=== PATIENT | female | born 1990 | race Caucasian/White ===

== ENCOUNTER 2018-09-11 12:08 | Observation (INO) ==
[2018-09-11] MEDS ORDERED: ONDANSETRON 4 MG/2 ML VIAL IVP ONE ×2 (12:36→15:28)
[2018-09-11] MEDS ORDERED: Sodium Chloride 0.9% 1,000 ML PRIMARY IV ONE (12:36)
[2018-09-11] MEDS ORDERED: MORPHINE SULFATE 4 MG/1 ML IVP ONE ×2 (12:36→14:53)
[2018-09-11 13:14] LABS: BASOPHILS # (AUTO) 0.02 10*3/UL; BASOPHILS % (AUTO) 0.2 % (0-1); EOSINOPHILS # (AUTO) 0.05 10*3/UL; EOSINOPHILS % (AUTO) 0.6 % (0-8); Hematocrit [HCT] 39.6 % (37.0-47.0); Hemoglobin [HGB] 13.5 g/dL (12.0-16.0); LYMPHOCYTES # (AUTO) 2.93 10*3/uL; MEAN CORPUSCULAR HGB CONC 34.1 g/dL (33-37); MEAN PLATELET VOLUME 10.4 FL (7.4-12.2); MONOCYTES # (AUTO) 0.52 10*3/UL (0.3-0.8); MONOCYTES % (AUTO) 6.1 % (5-15); NEUTROPHILS # (AUTO) 5.03 10*3/UL; NEUTROPHILS % (AUTO) 58.8 % (50-80); RED BLOOD COUNT 4.35 10^6/uL (4.20-5.40)
[2018-09-11 13:21] LABS: PLATELET MORPHOLOGY COMMENT NORMAL MORPHOLOGY (NORM); RBC MORPHOLOGY COMMENT NORMAL MORPHOLOGY (NORM); WBC MORPHOLOGY COMMENT NORMAL MORPHOLOGY (NORM)
[2018-09-11 13:22] LABS: BILIRUBIN,URINE NEGATIVE (NEG); CLARITY,URINE CLEAR (CLEAR); COLOR,URINE YELLOW (Y); GLUCOSE, URINE (UA) NEGATIVE (NEG); OCCULT BLOOD,URINE MODERATE (NEG); PH,URINE 7.5 (5.0-8.5); PROTEIN,URINE NEGATIVE (NEG); UROBILINOGEN,URINE 0.2 EU/dL (0.2)
[2018-09-11 13:25] LABS: BLOOD UREA NITROGEN 7 mg/dL (7-22); BUN/CREATININE RATIO 11.66 (6-20); LIPASE 82 IU/L (23-300); SERUM ALBUMIN 4.4 g/dL (3.5-4.8)
[2018-09-11 13:28] LABS: RBC,URINE RARE /hpf; URINE SAMPLE TYPE VOIDED SPECIMEN; WBC,URINE 0
[2018-09-11 13:29] LABS: SQUAMOUS EPITHELIAL CELL,UR RARE
--- NOTE | 2018-09-11 14:49 | DI ---
US Abdomen Complete 09/11/2018 12:37 PM History: [facility] DI ^Abdominal Pain Comparison: Abdominal ultrasound 09/05/2018. Procedure: Gonzalez scale and color doppler bilateral upper quadrant ultrasound was performed. Findings: The liver is normal in size, echogenicity, and echotexture. There are no focal lesions vis ualized. The gallbladder is normal, without evidence of stones or pericholecystic fluid. There is a n ormal gallbladder wall measuring 2 mm. No sonographic Roblero's sign was present. The common duct shantal ures 4 mm. There is no intrahepatic biliary ductal dilatation. There is no free fluid seen within the hepatorenal space. Imaged portions of the pancreas are grossly unremarkable. The spleen demonstrates normal size and mor phology and measures 10.6 x 4.2 x 3.6 cm. There is a 1.3 cm splenule adjacent to the spleen. The right kidney measures 11.8 cm in length and the left kidney measures 11.0 cm. No hydronephrosis, calculi, or masses are appreciated. The imaged portions of the abdominal aorta demonstrate normal caliber with distal tapering. The image d portions of the IVC demonstrate normal course and caliber. Impression: Normal upper abdominal ultrasound.
--- NOTE | 2018-09-11 15:20 | DI ---
US OB Transvaginal 09/11/2018 12:37 PM History: [facility] [place] DI ^[id number] ^Abdominal Pain Comparison: Pelvic ultrasound 03/13/2015. Findings: Routine transabdominal and endovaginal early obstetric ultrasound demonstrates no evidence of intrauterine . There is no detectable gestational sac or pole within the endometria l cavity. Both ovaries were visualized. The right ovary measures 3.6 x 2.7 x 2.4 cm (12 mL) with normal morphol ogy and vascular flow. The left ovary measures 2.1 x 1.3 x 1.0 cm. (1 mL) with normal morphology and vascular flow. There is a heterogeneously echogenic mass immediately adjacent to the posterior aspect of the right ovary. The mass measures 2.5 x 1.7 x 2.4 cm. The mass is partially obscured by adjacent shadowing bowel gas and the overlying right ovary. There is vascular flow within and surrounding the mass. There is no discrete gestational sac or pole within the mass, however. Minimal free cul- de-sac fluid was present. Impression: 1. There is a heterogeneously echogenic mass immediately adjacent to the slightly enlarged, though ot herwise normal right ovary. There is vascular flow within and surrounding the mass. There is no discr ete gestational sac or pole within the mass, however. Differential considerations for this mass include early ectopic , ovarian tissue, versus bowel loop. Given the mild enlargement of th e right ovary, differential considerations should also include ovarian torsion-detorsion. As early in trauterine and ectopic cannot be excluded, close clinical/laboratory followup is recommende d with low threshold for repeat imaging. 2. Normal sonographic morphology of the left ovary.
[2018-09-11] MEDS ORDERED: HYDROmorphone 2 MG/1 ML IVP ONE (15:26)
--- NOTE | 2018-09-11 16:24 | CONSULT ---
Consult Note - Consult Consult Date: 09/11/18 Reason for Consult: right lower quadrant pain, Requesting Physician: Dr. Marie Primary Care Provider: Ernestine Olson MD - History of Present Illness History of Present Illness: The patient is a 28-year-old LMP 08/07/2018 using nothing for contraception who started having pain about 1 week ago. Patient was seen in the emergency room for abdominal pain and right lower quadrant pain 09/05/2018. Quantitative hCG at that time was 19. The patient was sent home with precautions. The patient has had intermittent discomfort and pain. The patient went to work today in [place], [place] and started having increasing right lower quadrant pain and then had vaginal bleeding. The patient then went to the emergency room here after driving home to [place], [place] and then coming here to [facility] from [place], [place]. No fever or chills. Positive flatus. The patient is hungry. The patient states that her pain started a week ago on her right lower quadrant and has mainly been in the right lower quadrant but also throughout her abdomen and also wrapping around to her lower back on the right side. Patient does have a history of some low back pain problems. In the emergency room, the patient received 2 doses of morphine and for continued right lower quadrant pain the patient then received IV Dilaudid. This is right before I saw the patient. 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 Past medical history-no hypertension, no diabetes, no asthma Past surgical history noncontributory Allergies-Compazine and fentanyl No tobacco. Patient quit 4 months ago. Occasional alcohol. No drugs. Menarche around age 12 or 13. No STI history. No abnormal Pap smear history. The patient's GC and chlamydia today was negative by a urine PCR test. Past Medical History Tobacco Use: Current Every Day Smoker In the Past 12 Months, Have Used or Abuse Any of the Following Substance: Marijuana, Other (please comment) Medication / Allergies Home Medications: Home Medications Medication Instructions Recorded Confirmed Type NK 09/05/18 09/11/18 History Allergies/Adverse Reactions: Allergies Allergy/AdvReac Type Severity Reaction Status Date / Time fentanyl Allergy Intermediate Nausea and Verified 09/11/18 15:25 Vomiting hydromorphone HCl Allergy SHORTNESS Verified 09/11/18 12:11 [From Dilaudid] OF BREATH prochlorperazine edisylate Allergy NOT Verified 09/11/18 12:11 [From Compazine] APPLICABLE prochlorperazine maleate Allergy NOT Verified 09/05/18 21:50 [From Compazine] APPLICABLE Exam - Vitals Vital Signs: Vital Signs Temperature 97.6 F Temperature Source Temporal Artery Scan Pulse Rate [Pulse Oximeter] 84 Respiratory Rate 16 Blood Pressure [Left Arm] 114/82 Pulse Ox 98 Oxygen Delivery Method Room Air Height 5 ft 5 in Weight 135 lb - General General Appearance: Cooperative, Mild Distress - Respiratory Respiratory Exam: POSITIVE: Clear to Auscultation - Bilaterally - GI/Abdominal GI/Abdominal Exam: POSITIVE: Normal Bowel Sounds, Soft, Guarding (In the right lower quadrant but otherwise no guarding or rebound in the other parts of the abdomen.). NEGATIVE: Mass - Exam: POSITIVE: Speculum Exam Normal, Vaginal Bleeding (Dark blood in the vaginal vault. No tissue visualized.), Adnexal Tender (R). NEGATIVE: Adnexal Tender (L) - Psychiatric Psychiatric Exam: POSITIVE: Normal Affect, Normal Mood Results - Labs CBC and BMP: 09/11/18 13:00 09/11/18 13:00 Assessment and Plan - Assessment / Plan Additional Assessment/Plan Details: Assessment: The patient is a 28-year-old LMP 08/07/2018 at 5 weeks gestation by LMP. Quantitative hCG 195. 6 days ago her quantitative hCG was 19. Her quantitative hCG has doubled appropriately. The patient has had right lower quadrant pain for about a week and this right lower quadrant pain worsened today and then she had vaginal bleeding. The patient has required 3 doses of IV narcotics in the emergency room secondary to her right lower quadrant pain. The patient does have a 2-2-1/2 cm mass on the right side that may be contiguous with the right ovary or may be behind the right ovary such as in the fallopian tube. The patient does have normal bowel sounds. The patient is passing flatus. The patient's white count is normal. The patient is hungry and does not have anorexia. The patient may have a threatened AB and spontaneous AB occurring. She may have a right ectopic . It would be unusual that the patient has had pain for a week that didn't increase today when 6 days ago her quantitative hCG was only 19. However, ectopic pregnancies can present in a patient who is in her early stages of . The patient's ovary is also slightly enlarged although there are no masses and the radiologist did discuss the possibility of intermittent torsion. The patient may have an early appendicitis but she does have a normal white count. The patient is Rh-. The patient's antibody screen is negative. Plan: I discussed with the patient the differential diagnosis of a threatened AB and a possible spontaneous AB occurring versus a right ectopic . I explained that an ectopic may occur in the fallopian tube and that is the most common place but ectopic pregnancies are pregnancies that occur outside of the uterus. I also discussed that this could be intermittent torsion. I discussed a diagnostic laparoscopy and possibly operative laparoscopy with a right salpingectomy. I discussed the risks, benefits, alternatives and indication of infection, bleeding, pain, damage to bowel, bladder, nerve, vessel, blood clots to the legs or lungs, the risk of not being able to diagnose exactly what is going on if a normal fallopian tube and normal ovary are visualized on the right side. I also discussed that I would try to visualize the appendix. Risk of anesthesia, and low risk of were discussed with the patient. The patient expressed understanding. The patient is contemplating what she would like to do. The patient does need RhoGAM. This will be administered. The patient and I discussed surgery versus observation. Initially the patient wanted to be observed overnight in the hospital but then she started having increased right lower quadrant pain after the third dose of IV narcotics- Dilaudid started to resolve its effects. The patient then decided that she wanted surgery secondary to her pain. The patient stated that she understood the risks. Consent forms were signed. Patient was transferred to the PACU.
[2018-09-11] MEDS ORDERED: RHO(D) IMMUNE GLOBULIN 1500 UNIT(300 mcg)SYRIN IM ONE (16:32)
--- NOTE | 2018-09-11 17:38 | PDOC ---
Abdomen/Flank HPI - General Chief Complaint: General Medical Stated Complaint: PELVIC/ABD/BACK PAIN Date Seen by Provider: 09/11/18 Time Seen by Provider: 12:25 Source: POSITIVE: Patient, Old records, Other (Mother) Exam Limitations: POSITIVE: No limitations Nurse's Notes Reviewed & Considered: Yes - History of Present Illness Initial Comments: The patient is a 28-year-old female. She states her last menstrual period was 07 August and she's had a positive test, once at home and once in the emergency room on 05 September. Patient states that around 8 AM she developed pain on the right side of her abdomen, especially in the left lower abdomen. Patient was seen in the emergency room on September 05 with some intermittent abdominal pain, right greater than left. She had a normal abdominal and transvaginal pelvic ultrasound at that time. Patient states that after going home after this first visit she has had a few episodes of mild intermittent pain, and then the pain became worse around 4-1/2 hours CEMENT MASON. Upon presentation to the emergency room the patient denied any vaginal discharge or bleeding, but while in the emergency room she did develop some vaginal bleeding. Patient is 4 para 1 aborta 2. No history of STDs. She states she has a history of "ovarian cysts "in the past. She's had some nausea but no vomiting. No melena, hematochezia, hematemesis, dysuria or hematuria. Body Location Affected: REPORTS: Abdomen Timing: REPORTS: Abrupt Duration: 4-6 hours (4-1/2 hours CEMENT MASON) Severity: Moderate Quality: REPORTS: "Pain" Abdominal Pain Onset Location: REPORTS: RLQ, Periumbilical Abdominal Pain Radiation: REPORTS: No radiation Context: REPORTS: None Modifying Factors: improves with: Nothing Associated Symptoms: REPORTS: Nausea Similar Symptoms Previously: Yes (seen in the ER 05 September with abdominal discomfort; see above) Recent Care Received: REPORTS: Recently Seen, Treated by MD Any Prior Injuries Related to Current Complaint?: No - Patient Home Medications Home Medications: Home Medications NK 09/05/18 - Patient Allergies Allergies/Adverse Reactions: Allergies Allergy/AdvReac Type Severity Reaction Status Date / Time fentanyl Allergy Intermediate Nausea and Verified 09/11/18 15:25 Vomiting hydromorphone HCl Allergy SHORTNESS Verified 09/11/18 12:11 [From Dilaudid] OF BREATH prochlorperazine edisylate Allergy NOT Verified 09/11/18 12:11 [From Compazine] APPLICABLE prochlorperazine maleate Allergy NOT Verified 09/05/18 21:50 [From Compazine] APPLICABLE Past Medical History - heen HEENT History: Denies History Cardiovascular History: Other (please comment) Additional Cardiovasular History: ANEMIA Respiratory History: Denies History Gastrointestinal History: Denies History Genitourinary History: Denies History Endocrine History: Denies History Musculoskeletal History: Denies History Neurological History: Denies History Blood Disorders: Anemia Psychiatric History: Denies History History of Sexually Transmitted Diseases: No Female Reproductive History: Ovarian Cyst Additional Obstetrical History: currently , approx. 3 weeks per patient Cancer History: Denies History In Past Year Been Physically Harmed or Verbally Threatened: No History of MDRO: No History of Other Communicable Diseases: No Tobacco Use: Current Every Day Smoker Alcohol Use: None In the Past 12 Months, Have Used or Abuse Any Substance: Marijuana, Other (please comment) Previous Surgical History: No Significant Family History: Cancer, Diabetes, Seizures Past Medical History Reviewed: Reviewed - No Changes ROS - Limitations ROS Limitations: No Limitations Constitution: REPORTS: Denies Symptoms Cardiovascular: REPORTS: Denies Cardiac Symptoms Respiratory: REPORTS: Denies Resp Symptoms Neurological: REPORTS: Denies Neuro Symptoms Gastrointestinal: REPORTS: Abdominal Pain, Nausea Endocrine: REPORTS: Denies Symptoms Musculoskeletal: REPORTS: Denies MS Symptoms Genitourinary: REPORTS: Denies Symptoms Eyes: REPORTS: Denies Symptoms ENT: REPORTS: Denies Symptoms Skin: REPORTS: Denies Skin Symptoms Lympathic: REPORTS: Denies Lympathic Symptoms Immunologic: POSITIVE: Denies Symptoms Psychiatric: POSITIVE: Denies Psych Symptoms Abdominal/Flank Pain PE - General Appearance General Appearance: POSITIVE: Alert, Cooperative, No Evidence of Trauma, Moderate Distress (Due to abdominal pain). NEGATIVE: No Acute Distress - HEENT HEENT: POSITIVE: Head Inspection Nml, Eyes Inspection Nml, Ears Inspection Nml, Nose Inspection Nml, Oral/Dental Inspect. Nml, Pharynx Inspect. Nml, PERRL, EOMI - Neck Neck: POSITIVE: Normal Inspection, No Apparent Injury - Respiratory Respiratory: POSITIVE: No Respiratory Distress, Breath Sounds Normal, Chest Non- Tender - Cardiovascular Cardiovascular: POSITIVE: Regular Rate and Rhythm, Heart Sounds Normal, Equal Pulses, Strong Pulses Peripheral Pulses: Radial (R): 2+, Radial (L): 2+ - Chest Chest: POSITIVE: Non Tender - Abdomen Abdomen: Soft: (All Quadrants), Normal Bowel Sounds: (All Quadrants), Denies Tenderness: (LUQ), (LLQ), (RUQ), No Splenomegaly: (All Quadrants), No Hepatomegaly: (All Quadrants), No Guarding: (All Quadrants), No Rebound: (All Quadrants), No Palpable Pulse: (All Quadrants), No Palpabale Mass: (All Quadrants), No Distention: (All Quadrants), No Rigidity: (All Quadrants), Tenderness Noted: (RLQ) Additional Abdominal Details: Abdominal examination shows bowel sounds to be present. Patient complains of pain on palpation over the right lower quadrant and right paraumbilical area, with no masses, organomegaly or rebound. - Genital / Rectal Pelvic: POSITIVE: External Exam Normal, Vaginal Bleeding, Cervical Motion Tender, Adnexal Tenderness (R). NEGATIVE: Speculum Exam Normal (Some blood in the vault; cervical os closed), Bimanual Exam Normal (Tender on palpation right adnexa), Vaginal Discharge, Adnexal Tenderness (L), Adnexal Mass (R), Adnexal Mass (L), Enlarged Uterus, Tender Uterus, Perineal Hematoma - Back Back: POSITIVE: Normal Inspection. NEGATIVE: CVA Tenderness (R), CVA Tenderness (L) - Skin Skin: POSITIVE: Intact, Normal For Race, Warm, Dry, No Rash - Extremities Extremity: Non-Tender: (All Extremities), Normal ROM: (All Extremities), Normal Inspection: (All Extremities) - Neurological Neurological: POSITIVE: Affect Apporpriate, Oriented X3, diagnostic sales specialist Normal As Tested, Motor Normal, Sensation Normal - Psychological Psychiatric: POSITIVE: Affect Appropriate, Mood Appropriate Images - Complete Complete: 1 - Pain on palpation Abdomen Progress - Results Reviewed by me Xrays/CTs/US Reviewed by me: Yes Discussed with Radiologist: Yes Radiology Findings: Pelvic ultrasound shows a right adnexal mass. No intrauterine contents noted. Lab Results Reviewed by Me: Yes (blood type is A-) CBC and BMP: 09/11/18 13:00 09/11/18 13:00 Lab Results:: Laboratory Results 09/11/18 09/11/18 09/11/18 13:00 13:00 13:00 WBC 8.56 RBC 4.35 Hgb 13.5 Hct 39.6 MCV 91.0 MCH 31.0 MCHC 34.1 RDW Std Deviation 44.1 RDW Coeff of Daniel 13.5 Plt Count 274 MPV 10.4 Immature Gran % (Auto) 0.1 Neut % (Auto) 58.8 Lymph % (Auto) 34.2 Shoshone % (Auto) 6.1 Eos % (Auto) 0.6 Baso % (Auto) 0.2 Immature Gran # (Auto) 0.01 Neut # (Auto) 5.03 Lymph # (Auto) 2.93 Shoshone # (Auto) 0.52 Eos # (Auto) 0.05 Baso # (Auto) 0.02 WBC Morphology Comment Normal morphology Plt Morphology Comment Normal morphology RBC Morph Comment Normal morphology Sodium 137 Potassium 3.7 L Chloride 104 Carbon Dioxide 24 Anion Gap 9 BUN 7 Creatinine 0.6 Estimated GFR > 60 BUN/Creatinine Ratio 11.66 Glucose 82 Calculated Osmolality 280.0 Calcium 9.1 Total Bilirubin 0.4 D AST 28 ALT 27 Alkaline Phosphatase 94 C-Reactive Protein < 0.5 Total Protein 7.5 Albumin 4.4 Globulin 3.1 Albumin/Globulin Ratio 1.40 Amylase 53 Lipase 82 HCG, Quant Ur Collection Type Voided specimen Urine Color Yellow Urine Clarity Clear Urine pH 7.5 Ur Specific [place] 1.010 Urine Protein Negative Urine Glucose (UA) Negative Urine Ketones Negative Urine Occult Blood Moderate H Urine Nitrate Negative Urine Bilirubin Negative Urine Urobilinogen 0.2 Ur Leukocyte Esterase Negative Urine RBC Rare Urine WBC 0 Ur Squamous Epith Cells Rare Ur Renal Epithelial Cell None Urine Crystals None Urine Bacteria None Urine Casts None Urine Mucus None Urine Trichomonas None Urine Yeast None Ur Culture Indicated? Culture not set Blood Type Antibody Screen 09/11/18 09/11/18 13:00 14:32 WBC RBC Hgb Hct MCV MCH MCHC RDW Std Deviation RDW Coeff of Daniel Plt Count MPV Immature Gran % (Auto) Neut % (Auto) Lymph % (Auto) Shoshone % (Auto) Eos % (Auto) Baso % (Auto) Immature Gran # (Auto) Neut # (Auto) Lymph # (Auto) Shoshone # (Auto) Eos # (Auto) Baso # (Auto) WBC Morphology Comment Plt Morphology Comment RBC Morph Comment Sodium Potassium Chloride Carbon Dioxide Anion Gap BUN Creatinine Estimated GFR BUN/Creatinine Ratio Glucose Calculated Osmolality Calcium Total Bilirubin AST ALT Alkaline Phosphatase C-Reactive Protein Total Protein Albumin Globulin Albumin/Globulin Ratio Amylase Lipase HCG, Quant 195.13 Ur Collection Type Urine Color Urine Clarity Urine pH Ur Specific [place] Urine Protein Urine Glucose (UA) Urine Ketones Urine Occult Blood Urine Nitrate Urine Bilirubin Urine Urobilinogen Ur Leukocyte Esterase Urine RBC Urine WBC Ur Squamous Epith Cells Ur Renal Epithelial Cell Urine Crystals Urine Bacteria Urine Casts Urine Mucus Urine Trichomonas Urine Yeast Ur Culture Indicated? Blood Type A NEGATIVE Antibody Screen Negative - Patient's Progress Pain Medication Addressed: POSITIVE: Yes (Patient medicated with morphine and Dilaudid for abdominal pain) School/Work Release Addressed: POSITIVE: Not Applicable Re-examine Time: 14:40 Re-Examine Comment: Patient somewhat somnolent from narcotic analgesia. Advised patient and mother that she may have an ectopic . Gynecological consult to Dr. Goyal made. RhoGAM administered. Status: POSITIVE: Unchanged, Re-Examined - Consult Consult (If Yes, Name of Consulting MD & Time Called): Yes (Dr. Goyal, ASTROCHEMIST, [id number]) Consulting MD will see pt:: POSITIVE: In ED, [facility] Admit Counseled: POSITIVE: Patient, Family (Mother), RE: Lab Results, RE: Radiology Results, RE: DX, RE: Need for F/U Patient Care Time - Estimated PCT Patient Care Time (In Minutes): 50 Vital Signs - Recent Vital Signs Vital Signs: Vital Signs (Last 8 hours) Temp Pulse Resp BP Pulse Ox 09/11/18 12:22 97.6 F 84 16 114/82 98 - VS Reviewed Vital Signs Reviewed: Yes Discharge Clinical Impression: Ectopic Discharge Disposition: Admit to Inpatient Follow Up With: Ernestine Olson [Primary Care Provider] - Date Decision to Admit to Inpatient: 09/11/18 Time Decision to Admit to Inpatient: 14:45
[2018-09-11] MEDS ORDERED: PROPOFOL 10 MG/1 ML (200 MG/20 ML) VIAL IV ONE (17:54)
[2018-09-11] MEDS ORDERED: LIDOCAINE MPF 2% - 5 ML (20 MG/1 ML) ONE (17:55)
[2018-09-11] MEDS ORDERED: ROCURONIUM 10 MG/1 ML - 5 ML VIAL IVP ONE (17:55)
[2018-09-11] MEDS ORDERED: fentaNYL Inj 250 MCG/5 ML VIAL ONE (17:58)
[2018-09-11] MEDS ORDERED: MIDAZOLAM 5 MG/1 ML ONE (17:58)
[2018-09-11] MEDS ORDERED: Lactated Ringers 1,000 ML PRIMARY IV ONE (18:01)
--- NOTE | 2018-09-11 18:03 | OB.OP.NOTE ---
Operative Report Surgeon: Jay Jay [employer] Advisor: Nelson Presley MD Anesthesia Type: General Anesthesia Provider: Issac Mclaughlin CRNA Surgery Date: 09/11/18 Preoperative Diagnosis: , right lower quadrant pain, right lower quadrant mass on ultrasound-rule out ectopic Procedure: Diagnostic laparoscopy. Operative laparoscopy. Right salpingectomy Estimated Blood Loss (mL): 5 Fluids: 800 mL LR. 20 mL urine before procedure. About 20-30 mL of blood in the patient's abdomen at the beginning of the procedure. Mefoxin 2 g IV was given preoperatively Complications: None apparent Findings at Surgery: There was blood in the anterior cul-de-sac about 5 mL There is 10-15 mL of blood around the right ovary and left ovary and in the posterior cul-de-sac The right tube was visualized and there was a right ectopic with blood clot at the fimbria The left ovary and tube appeared normal The appendix appeared normal. After the right salpingectomy, there was good hemostasis. Copious amounts of irrigation and then suction of the fluid. Indications for the Procedure: The patient is a 28-year-old LMP 08/07/2018 at 5 weeks gestation by LMP. Quantitative hCG 195. 6 days ago her quantitative hCG was 19. Her quantitative hCG has doubled appropriately. The patient has had right lower quadrant pain for about a week and this right lower quadrant pain worsened today and then she had vaginal bleeding. The patient has required 3 doses of IV narcotics in the emergency room secondary to her right lower quadrant pain. The patient does have a 2-2-1/2 cm mass on the right side that may be contiguous with the right ovary or may be behind the right ovary such as in the fallopian tube. The patient does have normal bowel sounds. The patient is passing flatus. The patient's white count is normal. The patient is hungry and does not have anorexia. The patient may have a threatened AB and spontaneous AB occurring. She may have a right ectopic . It would be unusual that the patient has had pain for a week that didn't increase today when 6 days ago her quantitative hCG was only 19. However, ectopic pregnancies can present in a patient who is in her early stages of . The patient's ovary is also slightly enlarged although there are no masses and the radiologist did discuss the possibility of intermittent torsion. The patient may have an early appendicitis but she does have a normal white count. The patient is Rh-. The patient's antibody screen is negative. Plan: I discussed with the patient the differential diagnosis of a threatened AB and a possible spontaneous AB occurring versus a right ectopic . I explained that an ectopic may occur in the fallopian tube and that is the most common place but ectopic pregnancies are pregnancies that occur outside of the uterus. I also discussed that this could be intermittent torsion. I discussed a diagnostic laparoscopy and possibly operative laparoscopy with a right salpingectomy. I discussed the risks, benefits, alternatives and indication of infection, bleeding, pain, damage to bowel, bladder, nerve, vessel, blood clots to the legs or lungs, the risk of not being able to diagnose exactly what is going on if a normal fallopian tube and normal ovary are visualized on the right side. I also discussed that I would try to visualize the appendix. Risk of anesthesia, and low risk of were discussed with the patient. The patient expressed understanding. The patient is contemplating what she would like to do. The patient does need RhoGAM. This will be administered. The patient and I discussed surgery versus observation. Initially the patient wanted to be observed overnight in the hospital but then she started having increased right lower quadrant pain after the third dose of IV narcotics- Dilaudid started to resolve its effects. The patient then decided that she wanted surgery secondary to her pain. The patient stated that she understood the risks. Consent forms were signed. Patient was transferred to the PACU. Description of Procedure: The patient was taken to the operating room after the risks, benefits, alternatives and indications of the diagnostic and possible operative laparoscopy were discussed with the patient in detail. Consent forms have been signed. The patient underwent general endotracheal anesthesia without complication. The patient was placed in [facility] stirrups and prepped and draped sterilely. The patient's bladder was drained of urine with a catheter via the urethra. A moistened sponge stick was placed in the patient's vagina instead of a usual uterine manipulator in case this was a early intrauterine . Attention was then turned to the patient's abdomen. Quarter percent Marcaine with epinephrine was injected infraumbilically and then an infraumbilical incision was made. A varies needle was then inserted and CO2 gas was allowed to insufflate the abdomen. The varies needle was then removed. Then the trocar was inserted with direct visualization via the laparoscopy. The scope was removed and then the trocar was removed and the port was left in place. The scope was placed in the abdomen and the abdomen was examined. There was blood in the anterior cul-de-sac The patient's appendix appeared normal. The right fallopian tube was visualized and there was blood extruding from the fimbria. There was a right ectopic . The left ovary and tube was visualized and appeared to be normal. The uterus appeared to be normal. The upper abdomen appeared normal. A suprapubic port was placed-5 mm under direct visualization after Marcaine was injected into the skin and then a incision was made. The trocar was removed and the port was left in place. A left quadrant wart was then placed. This was a 10 mm under direct visualization after Marcaine was injected in the skin and then an incision was made. The trocar was removed and the port was left in place. Graspers were used to grasp the right fallopian tube and then in the left abdominal port the gyrus was placed and then the right salpingectomy was performed with cautery then cut cautery then cut. The right salpingectomy was completed. One area of the mesosalpinx was minimally bleeding and this area was bovied. This allowed for excellent hemostasis. The right fallopian tube was removed from the port on the patient's left side. Then blood clot was removed from the patient's abdomen and then suctioned and then irrigated and suctioned again. I had left about 1 cm of fallopian tube at the cornua and this was bovied and there was very good hemostasis. Copious amounts of irrigation was used. This irrigation was suctioned. Photographs were taken before and after the salpingectomy. The appendix was visualized as stated above and photographs were taken. The laparoscopy was completed. The CO2 gas was allowed to escape out of the ports. The ports were then removed. The left quadrant port site was examined and the fascia defect was small. The fascia was not repaired in this area. 4-0 Monocryl suture was used to close the 3 port sites subcutaneously. 2-0 stratafix suture was then used to close the left port site in the suprapubic port site. Dermabond was used to close the infraumbilical site. Dermabond was then placed over the 2 other port sites. After allowing for drying, Band-Aids were placed. The sponge stick was removed from the patient's vagina. There was no vaginal bleeding. The patient was awakened from her general endotracheal anesthesia and brought to the PACU in stable condition. Sponge lap and needle counts were correct 2. Plan: The patient will be observed in the PACU and then admitted overnight since the patient lives 40 minutes away and it is almost 2000 hrs. The patient will be discharged in the morning if doing well. CBC and quantitative hCG in the morning. The right fallopian tube and other clot will be sent for pathology
[2018-09-11] MEDS ORDERED: Acetaminophen 1000mg Inj 1,000 MG/100 ML VIAL IV ONE (18:07)
[2018-09-11] MEDS ORDERED: DEXAMETHASONE PF 10 MG/1 ML VIAL ONE (18:08)
[2018-09-11] MEDS ORDERED: ONDANSETRON 4 MG/2 ML VIAL ONE (18:08)
[2018-09-11] MEDS ORDERED: KETAMINE HCL 100 MG/2 ML SYRINGE IV ONE (18:16)
[2018-09-11] MEDS ORDERED: BUPIVACAINE 0.25% W/ EPI - 10 ML VIAL ONE ×2 (18:17→18:45)
[2018-09-11] MEDS ORDERED: Sodium Chloride 0.9% 100 ML IV ONE (18:22)
[2018-09-11] MEDS ORDERED: CefOXitin Inj 2 GM in Sodium Chloride 0.9% 100 ML IV ONE (18:26)
[2018-09-11] MEDS ORDERED: SUFENTANIL 50 MCG/1 ML ONE (18:37)
[2018-09-11] MEDS ORDERED: KETOROLAC 30 MG/1 ML VIAL ONE (18:57)
[2018-09-11] MEDS ORDERED: SUGAMMADEX SODIUM 200 MG/2 ML VIAL IV ONE (19:19)
[2018-09-11] MEDS ORDERED: LIDOCAINE W/ SODIUM BICARB 0.5 ML SYR SUBD PRN (19:41)
--- NOTE | 2018-09-11 19:41 | CRNA.PROGR ---
Anesthesia Time - Procedure/Recovery Time Start Date: 09/11/18 End Date: 09/11/18 Anesthesia : Time In: 18:21 Anesthesia : Time Out: 19:37 Anesthesia : Total Time: 76 - Total Anesthesia Time Total Anesthesia Time (minutes): 76 - Other Weight: 61.235 kg Height: 5 ft 5 in Body Mass Index (BMI): 22.4 Physical Status: P2 Anesthesia Type: General Anesthesia : ET
--- NOTE | 2018-09-11 19:43 | CRNA.PROGR ---
Anesthesia Recovery Phase I - Post Anesthesia Evaluation Patient's Condition on Arrival in Phase I: Stable Pain Level: 4
[2018-09-11] MEDS: MORPHINE SULFATE 2 MG/1 ML IVP PRN ×2 (19:49→20:00)
[2018-09-11] MEDS ORDERED: MORPHINE SULFATE 2 MG/1 ML ONE (19:55)
[2018-09-11] MEDS ORDERED: LORazepam 2 MG/1 ML VIAL IVP ONE (20:04)
[2018-09-11] MEDS ORDERED: HYDROcodone-APAP 5 MG -325 MG TABLET PO PRN (20:58)
[2018-09-11] MEDS ORDERED: LIDOCAINE HCL 2 % 10 ML JELLY URO-JECT TOPICAL PRN (20:58)
[2018-09-11] MEDS: DOCUSATE 100 MG CAPSULE PO SCH (21:34)
[2018-09-11] MEDS: Lactated Ringers 1,000 ML PRIMARY IV SCH (21:35)
[2018-09-11] MEDS: KETOROLAC 15 MG/1 ML VIAL IVP SCH (22:40)
[2018-09-11] MEDS: HYDROcodone-APAP 7.5 MG-325 MG TABLET PO PRN (22:41)
[2018-09-12] MEDS: KETOROLAC 15 MG/1 ML VIAL IVP SCH ×3 (03:40→14:45)
[2018-09-12 04:42] LABS: BASOPHILS # (AUTO) 0.01 10*3/UL; BASOPHILS % (AUTO) 0.1 % (0-1); EOSINOPHILS # (AUTO) 0 10*3/UL; EOSINOPHILS % (AUTO) 0 % (0-8); Hematocrit [HCT] 35.8 % (37.0-47.0); Hemoglobin [HGB] 11.9 g/dL (12.0-16.0); LYMPHOCYTES # (AUTO) 0.84 10*3/uL; MEAN CORPUSCULAR HGB CONC 33.2 g/dL (33-37); MEAN CORPUSCULAR VOLUME 93.2 FL (81-99); MEAN PLATELET VOLUME 10.5 FL (7.4-12.2); MONOCYTES # (AUTO) 0.27 10*3/UL (0.3-0.8); MONOCYTES % (AUTO) 2.5 % (5-15); NEUTROPHILS # (AUTO) 9.83 10*3/UL; NEUTROPHILS % (AUTO) 89.5 % (50-80); RED BLOOD COUNT 3.84 10^6/uL (4.20-5.40)
[2018-09-12 05:39] LABS: PLATELET MORPHOLOGY COMMENT NORMAL MORPHOLOGY (NORM); RBC MORPHOLOGY COMMENT NORMAL MORPHOLOGY (NORM); WBC MORPHOLOGY COMMENT NORMAL MORPHOLOGY (NORM)
[2018-09-12] MEDS: Lactated Ringers 1,000 ML PRIMARY IV SCH (05:59)
[2018-09-12] MEDS: HYDROcodone-APAP 7.5 MG-325 MG TABLET PO PRN ×2 (06:02→09:32)
[2018-09-12] MEDS: DOCUSATE 100 MG CAPSULE PO SCH ×2 (09:20→20:50)
[2018-09-12] MEDS: Ondansetron ODT Tab 8 MG TAB PO PRN ×3 (09:27→20:50)
[2018-09-12] MEDS: SIMETHICONE 80 MG TABLET PO PRN ×2 (11:03→20:50)
--- NOTE | 2018-09-12 12:02 | CRNA.PROGR ---
Anesthesia Note - Progress Notes Anesthesia Progress Note: Post OP Anesthesia Note Pt is sitting up in bed,resting. She denies any residual problems from the General anesthetic. She has been up ambulating and to the restroom without any difficulties. She does states that she is having shoulder and chest pain, I encouraged her to get up and ambulate. She is able to tolerate a regular diet. Current VS are stable. Vital Signs - Last Taken Temperature 97.9 F 09/12/18 09:28 Pulse Rate 68 09/12/18 09:28 Respiratory Rate 16 09/12/18 09:28 Blood Pressure 106/60 09/12/18 09:28 Pulse Ox 99 09/12/18 09:28
--- NOTE | 2018-09-12 14:39 | PDOC(PROG) ---
Subjective Post Op Day: 1 Pain Management: IV toradol Colindres Catheter: No Flatus: No Diet: Regular Ambulating: Yes Concerns / Additional Information: The patient states she is not passing flatus. She has pain but it is different from yesterday. She has ambulated. The patient is not sure if she wants to go home. Objective - General General Appearance: POSITIVE: Cooperative, Mild Distress - Cardiovacular Cardiovascular Exam: POSITIVE: RRR Edema: No Pedal Edema Extremities: Negative Kavya's - Bilaterally - Respiratory Respiratory Exam: POSITIVE: Clear to Auscultation - Bilaterally - Abdomen Bowel Sounds: Present Other Abdominal Exam Details: Abdomen is soft but appropriately tender status post laparoscopy. No guarding or rebound. Assesstment / Plan Assessment / Plan: Assessment: Postoperative day #1 status post laparoscopy with right salpingectomy for right ectopic . Patient's H&H is good this morning. Patient's quantitative hCG did decrease appropriately. Plan: I will change the patient's narcotic from hydrocodone and oxycodone. Continue to observe and hopefully discharged later today. Patient needs to follow-up with me in 1-2 weeks. Ibuprofen 800 mg 1 tablet by mouth 3 times a day with food or milk for 5 days then 3 times a day as needed Oxycodone/Tylenol 5/325 one to 2 tablets by mouth every 6 hours when necessary pain Colace 100 mg capsule 1 capsule by mouth daily to twice a day when necessary constipation Usual postoperative instructions and precautions Pelvic rest for 6 weeks at least.
[2018-09-12] MEDS: oxyCODONE-ACETAMINOPHEN 5-325 TAB PO PRN ×2 (14:45→22:26)
--- NOTE | 2018-09-12 19:07 | PDOC(PROG) ---
Subjective Post Op Day: 1 Pain Management: PO Colindres Catheter: No Flatus: Yes Diet: Regular Ambulating: Yes Concerns / Additional Information: The patient has had some continued abdominal pain and shoulder pain today. She is passing flatus. She is able to eat but after we started the Percocet, she did have some increased nausea. The patient states that she gets nauseated with most narcotics. The last time she had narcotics is when she delivered her baby 4 years ago. She had hydrocodone at that time. She even got nauseated with 1 tablet of hydrocodone at that time. The patient is able to ambulate. The patient states that she has been drinking but secondary to her nausea she believes she is drinking a little bit less and would like her IV started again overnight just to get enough fluids. She also did not want anymore Toradol and wanted ibuprofen. The patient is glad that she is staying overnight but hoping that she can go home tomorrow. The patient states that she does not feel that anything is wrong but she just is continuing to have pain after the surgery. Objective - General General Appearance: POSITIVE: Cooperative, Mild Distress (The patient was ambulating when I first got to the [facility] unit this evening.) - Abdomen Other Abdominal Exam Details: Dressing is applied for 3 port sites. Abdomen is soft but tender. Negative heel tap. The patient even guarded before I palpated her abdomen. No rebound. Assesstment / Plan Assessment / Plan: Postoperative day #1 status post diagnostic and then operative laparoscopy with right salpingectomy for ectopic . The patient's last vital signs were at 1545 hrs. and her pulse was 74. Afebrile. The patient is very sensitive to narcotics and nausea is a common side effect for this patient with narcotics. The patient would like her IV restarted this evening secondary to slight decreased oral intake secondary to the nausea. The patient's Toradol was discontinued because the patient asked for ibuprofen. The first dose of ibuprofen will be given at 2100 hrs. or a little before The patient has some shoulder discomfort which hopefully is just secondary to remaining intra-abdominal CO2 gas. At the time of surgery, there was no evidence of bowel injury. Plan: Continue to observe patient in the hospital Ibuprofen 800 mg every 8 hours starting at 2045 hrs. this evening IV fluids Check a CBC in the morning and a CMP The patient was switched from hydrocodone and oxycodone but this may be causing her nausea. I did prescribe the oxycodone as an outpatient and her significant other already picked this up.
[2018-09-12] MEDS: IBUPROFEN 800 MG TABLET PO PRN (20:50)
[2018-09-13] MEDS: oxyCODONE-ACETAMINOPHEN 5-325 TAB PO PRN ×2 (04:23→11:03)
[2018-09-13 04:54] LABS: BASOPHILS # (AUTO) 0.01 10*3/UL; BASOPHILS % (AUTO) 0.1 % (0-1); EOSINOPHILS # (AUTO) 0.04 10*3/UL; EOSINOPHILS % (AUTO) 0.5 % (0-8); Hematocrit [HCT] 32.1 % (37.0-47.0); Hemoglobin [HGB] 10.6 g/dL (12.0-16.0); LYMPHOCYTES # (AUTO) 3.15 10*3/uL; MEAN CORPUSCULAR HEMOGLOBIN 31.3 PG (27-31); MEAN CORPUSCULAR VOLUME 94.7 FL (81-99); MEAN PLATELET VOLUME 10.5 FL (7.4-12.2); MONOCYTES # (AUTO) 0.43 10*3/UL (0.3-0.8); MONOCYTES % (AUTO) 5.7 % (5-15); NEUTROPHILS # (AUTO) 3.85 10*3/UL; NEUTROPHILS % (AUTO) 51.6 % (50-80); RED BLOOD COUNT 3.39 10^6/uL (4.20-5.40)
[2018-09-13 04:58] LABS: PLATELET MORPHOLOGY COMMENT NORMAL MORPHOLOGY (NORM); RBC MORPHOLOGY COMMENT NORMAL MORPHOLOGY (NORM); WBC MORPHOLOGY COMMENT NORMAL MORPHOLOGY (NORM)
[2018-09-13 05:14] LABS: BLOOD UREA NITROGEN 7 mg/dL (7-22); BUN/CREATININE RATIO 11.66 (6-20)
[2018-09-13 06:57] VITALS: O2SAT 95
[2018-09-13] MEDS: IBUPROFEN 800 MG TABLET PO PRN (07:53)
[2018-09-13] MEDS: DOCUSATE 100 MG CAPSULE PO SCH (08:02)
--- NOTE | 2018-09-13 10:16 | PDOC(PROG) ---
Subjective Post Op Day: 2 Pain Management: PO Colindres Catheter: No Flatus: Yes Diet: Regular Ambulating: Yes Concerns / Additional Information: Patient states that her pain is still 5 or 6 out of 10. Positive flatus. Patient stated that she wanted to go home. Objective - General General Appearance: POSITIVE: Cooperative, Mild Distress - Cardiovacular Cardiovascular Exam: POSITIVE: RRR Edema: No Pedal Edema Extremities: Negative Kavya's - Bilaterally - Respiratory Respiratory Exam: POSITIVE: Clear to Auscultation - Bilaterally - Abdomen Bowel Sounds: Present Other Abdominal Exam Details: Negative heel tap. Patient is tender to just light palpation. The patient actually flanged before I even touched her abdomen. The patient's abdomen is nondistended. No right upper quadrant tenderness. The patient has some tenderness in the right lower and left lower quadrant without rebound. Assesstment / Plan Assessment / Plan: Assessment: Postoperative #2 status post diagnostic and then operative laparoscopy. Right salpingectomy for ectopic . The patient's white count is normal. H&H is normal at 10.6 and 32.1. New today is the patient's AST and ALT are elevated at 93 and 149 respectfully. Patient's vital signs are normal. Afebrile. A splash did occur during the surgery so hepatitis C and HIV were drawn on this patient and both are negative. I believe that this patient is just very sensitive to pain. Her white count is normal and her H&H is stable considering she received IV fluids overnight. I do not believe that she has a significant intra-abdominal bleed The elevated liver function tests are new for this patient. Plan: I will ask the hospitalist to see this patient about the patient's elevated AST and ALT. Perhaps it is just attributed to the recent general anesthesia. Consider discharge pending the hospitalist findings and recommendations.
[2018-09-13 10:50] LABS: LIPASE 74 IU/L (23-300)
[2018-09-13 11:06] VITALS: BP 104/59; RESP 18; TEMP 98
[2018-09-13 11:13] LABS: BILIRUBIN,URINE NEGATIVE (NEG); CLARITY,URINE Slightly Cloudy (CLEAR); COLOR,URINE YELLOW; GLUCOSE, URINE (UA) NEGATIVE (NEG); OCCULT BLOOD,URINE MODERATE (NEG); PROTEIN,URINE 30 mg/dl (NEG)
[2018-09-13 11:19] LABS: SQUAMOUS EPITHELIAL CELL,UR MANY
[2018-09-13 11:20] LABS: BACTERIA,URINE FEW
[2018-09-13] MEDS ORDERED: Opium-Belladonna 60-16.2mg 1 EACH SUPP.RECT RECTAL ONE (11:37)
[2018-09-13 13:04] LABS: URINE SAMPLE TYPE CLEAN CATCH URINE
--- NOTE | 2018-09-13 13:15 | PDOC(PROG) ---
Subjective Post Op Day: 2 Pain Management: PO Colindres Catheter: No Flatus: Yes Diet: Regular Concerns / Additional Information: I just saw the patient now. The patient would like to go home. Objective - General General Appearance: POSITIVE: No Acute Distress, Cooperative Assesstment / Plan Assessment / Plan: Assessment: Postoperative day #2 status post diagnostic and then operative laparoscopy and a right salpingectomy for a right fallopian tube ectopic . The patient has had pain that is much more than usual postoperatively and I have observe the patient for 2 days secondary to this significant pain. Her white count and her H&H have been normal. Today, the patient had elevated AST and ALT and I actually spoke with the patient's primary physician and Dr. Olson suggested that perhaps this is secondary to the Tylenol in the patient's oxycodone or other medications that she has been receiving. Amylase and lipase were ordered and were normal. A urinalysis was not a clean catch. The patient would like to go home now. The patient states that she is feeling better. Plan: Usual postoperative instructions Follow-up with me in 2 weeks. Medications at discharge: Ibuprofen 800 mg 1 tablet by mouth 3 times a day with food or milk for 5 days then 3 times a day as needed Oxycodone/Tylenol 5/325 one to 2 tablets every 6 hours when necessary pain. Patient may do better just taking 1 tablet every 6-8 hours. Colace 100 mg capsule 1 capsule daily to twice a day when necessary constipation Pelvic rest for at least 6 weeks. The patient and her significant other should consider whether or not they want to use contraception or if they want to try to conceive again. Again, pelvic rest for at least 6 weeks to allow for healing Follow-up labs in 1 week-liver function tests
--- NOTE | 2018-09-13 13:28 | DCSUMMARY ---
Hospitalization Summary Admit Date: 09/11/2018 Discharge Date: 09/13/18 Primary Diagnosis:: right ectopic Hospital Course: Assessment: Postoperative day #2 status post diagnostic and then operative laparoscopy and a right salpingectomy for a right fallopian tube ectopic . The patient has had pain that is much more than usual postoperatively and I have observe the patient for 2 days secondary to this significant pain. Her white count and her H&H have been normal. Today, the patient had elevated AST and ALT and I actually spoke with the patient's primary physician and Dr. Olson suggested that perhaps this is secondary to the Tylenol in the patient's oxycodone or other medications that she has been receiving. Amylase and lipase were ordered and were normal. A urinalysis was not a clean catch. The patient would like to go home now. The patient states that she is feeling better. Plan: Usual postoperative instructions Follow-up with me in 2 weeks. Medications at discharge: Ibuprofen 800 mg 1 tablet by mouth 3 times a day with food or milk for 5 days then 3 times a day as needed Oxycodone/Tylenol 5/325 one to 2 tablets every 6 hours when necessary pain. Patient may do better just taking 1 tablet every 6-8 hours. Colace 100 mg capsule 1 capsule daily to twice a day when necessary constipation Pelvic rest for at least 6 weeks. The patient and her significant other should consider whether or not they want to use contraception or if they want to try to conceive again. Again, pelvic rest for at least 6 weeks to allow for healing Follow-up labs in 1 week-liver function tests Exam - Vitals Vital Signs: Vital Signs Temperature 98 F Temperature Source Temporal Artery Scan Pulse Rate [Pulse Oximeter] 84 Pulse Rate 96 Respiratory Rate 18 Blood Pressure [Left Arm] 104/59 Blood Pressure 118/74 Pulse Ox 95 Oxygen Flow Rate 2.5 Oxygen Delivery Method Room Air Height 5 ft 5 in Weight 135 lb
== END 2018-09-13 13:57 | disposition home or self-care (01) ==
LOC: ER 12:08 → MED/SURG 17:39 → OPS 17:39 → OR 17:39 → OPS 17:40 → MED/SURG 20:22
PROVIDERS: ADMIT Obstetrics & Gynecology; ATTEND Obstetrics & Gynecology